=== PATIENT | male | born 1995 | race Caucasian/White ===

== ENCOUNTER 2023-06-27 10:18 | Emergency (ER) | payer SELFPAY ==
[2023-06-27 10:30] VITALS: BP 108/67; PULSE 64; RESP 15; O2SAT 98; BMI 24.4
--- NOTE | 2023-06-27 10:40 | ED_ITS ---
HPI - Wound/Laceration General: Chief Complaint: Wound/Laceration Stated Complaint: left finger lac Time Seen by Provider: 06/27/23 10:37 Source: patient Mode of arrival: ambulatory Limitations: no limitations History of Present Illness: Patient is a 28-year-old male presents to ED today for evaluation of a laceration to his left index finger that he sustained while at work just prior to arrival. 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 Tetanus is up-to-date. Onset (ago): hour(s) Extremity Location: Left: wrist (index finger) Place: work Patient tetanus UTD: Yes Context: accidental Associated symptoms: Reports no associated symptoms Review of Systems Musc: Reports: extremity pain (L finger) Skin/Breast: Reports: other (laceration L finger) Neuro: Denies: numbness in extremities or sensory changes Physical Exam Const: COMMON NORMALS: no acute distress, average body habitus, patient oriented x3, no limitations, healthy appearing, alert and well nourished Extremity: COMMON NORMALS: full ROM and capillary refill normal GENERAL: Yes normal exam except as noted LEFT UPPER EXTREMITY: Yes hand & digits (pt has extremely small 0.5 cm laceration to near dorsal PIP index) Left hand and digits: Yes ROM (full ROM against resistance in all plains ), Yes neurovascular exam (normal) and Yes other (denies bony tenderness) Neuro: COMMON NORMALS: patient oriented x3, moves all extremities, no focal motor deficits and no sensory deficits noted SENSORIUM/ORIENTATION: Yes alert Course Vital Signs: Vital signs: Vital Signs Pulse Rate 64 06/27/23 10:30 Respiratory Rate 15 06/27/23 10:30 Blood Pressure 108/67 06/27/23 10:30 Pulse Oximetry 98 06/27/23 10:30 Oxygen Delivery Me thod Room Air 06/27/23 10:30 MDM - Wound/Laceration Medical Decision Making Wound was copiously irrigated and repaired with glue as it is very superficial depth and length. Wound care/infection precautions discussed. 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 at this time and will pay [id number]. Discharge Plan Discharge Patient Disposition: Home Clinical Impression: Laceration of left index finger Qualifiers: Encounter type: initial encounter Damage to nail status: without damage Foreign body presence: without foreign body Qualified Code(s): S61.211A - Laceration without foreign body of left index finger without damage to nail, initial encounter Condition: Stable Discharge Orders: Discharge ED (Routine); Ordered 06/27/23 Ordered By: Herminia Davis Patient Instructions: Finger Laceration (ED) Activity Restrictions/Additional Instructions: Keep wound/laceration clean with warm soap and water twice daily. Monitor for signs of infection such as redness, swelling, increased pain, or drainage. Please seek medical re-evaluation if these occur. If your wound was closed with Steri-Strips or glue/adhesive these will fall off within the next week or so. Coding Level of Care Code ED Pulper Operator for Saumya Odell
== END 2023-06-27 11:20 | disposition home or self-care (01) ==
PROVIDERS: Emergency Provider Physician Assistant
DX: S61.211A Laceration without foreign body of left index finger without damage to nail, initial encounter (principal); W26.0XXA Contact with knife, initial encounter; Y99.0 Civilian activity done for income or pay
CPT/HCPCS: 12001; 99282

== ENCOUNTER 2023-07-17 16:49 | Emergency (ER) | payer SELFPAY ==
[2023-07-17 17:04] VITALS: BP 150/95; PULSE 71; RESP 16; TEMP 36.9; O2SAT 99; BMI 24.4
--- NOTE | 2023-07-17 17:11 | XRR_ITS ---
PROCEDURE INFORMATION: Exam: XR Right Ribs with PA Chest Exam date and time: 07/17/2023 5:35 PM Age: 28 years old Clinical indication: Injury or trauma; Other: Football injury; Rib area; Blunt trauma (contusions or hematomas) TECHNIQUE: Imaging protocol: Radiologic exam of the right ribs with PA chest. Views: 3 views COMPARISON: No relevant prior studies available. FINDINGS: Lungs: Unremarkable. No consolidation. Pleural spaces: Unremarkable. No pleural effusion. No pneumothorax. Heart/Mediastinum: Unremarkable. No cardiomegaly. Bones/joints: No fracture is seen about the right ribs, and particularly no displaced rib fracture is seen. Visualized osseous structures show no acute abnormality. XR/XR ribs RT mn 3V w [id number] IMPRESSION: No acute findings.
--- NOTE | 2023-07-17 17:18 | ED_ITS ---
HPI - General Adult General: Chief complaint: General Medical Stated complaint: abd pain Time Seen by Provider: 07/17/23 17:18 History of Present Illness: 28-year-old male patient was playing some football on Sunday and landed hard on his left side feeling a popping sensation in his right sternal area. Since then patient has had increased pain and discomfort to his right anterior ribs. Patient appears nontoxic. Patient appears in mild to moderate pain. Associated symptoms: Reports dyspnea (Difficulty taking a deep inspiration due to pain) Review of Systems General: Reports: 10 or more systems reviewed and unremarkable except in HPI and below Resp: Reports: dyspnea (Difficulty taking a deep inspiration due to pain) Musc: Reports: other (Chest wall tenderness pain) Physical Exam Const: COMMON NORMALS: alert HENMT: COMMON NORMALS: atraumatic HEAD & SCALP: atraumatic Neck/C-Spine: COMMON NORMALS: full ROM Chest: CHEST: Yes tenderness (Tenderness along the fifth and 6 sternal costal margins) Resp: COMMON NORMALS: normal respiratory effort and clear to auscultation bilaterally AUSCULTATION: clear to auscultation bilaterally Cardio: COMMON NORMALS: regular rate and regular rhythm RATE: regular rate RHYTHM: regular rhythm GI: COMMON NORMALS: non-tender Extremity: COMMON NORMALS: normal to inspection Neuro: SENSORIUM/ORIENTATION: Yes alert Skin: COMMON NORMALS: turgor normal GENERAL SKIN EXAM: turgor normal Course Vital Signs: Vital signs: Vital Signs Temperature 98.4 F 07/17/23 17:04 Pulse Rate 71 07/17/23 17:04 Respiratory Rate 16 07/17/23 17:04 Blood Pressure 150/95 07/17/23 17:04 Pulse Oximetry 99 07/17/23 17:04 Oxygen Delivery Me thod Room Air 07/17/23 17:04 [facility] - General Adult Medical Decision Making 28-year-old male patient comes in today with complaints of sternal rib pain. Patient reports falling while playing football on Sunday and since then has had increased pain and discomfort. On exam patient appears in mild to moderate pain. Patient has exacerbation of the pain with deep breath and cough. Lungs are clear to auscultation. Vital signs are normal except for some mild elevati on of blood pressure. Differential diagnosis includes costochondritis, sternal costal sprains, rib fracture, pneumothorax. X-ray noted no fracture or pneumothorax. No signs of severe illness or injury was noted. Reviewed exam with patient with recommendations for treatment and follow-up. Patient reported understanding and agreed to plan. XR interpretation done by ED provider, pending radiology final review Discharge Plan Discharge Patient Disposition: Home Clinical Impression: Sternocostal pain Condition: Stable Prescriptions: New ibuprofen 800 mg tablet 800 mg PO Q6H PRN (Reason: pain) Qty: 40 0RF Discharge Orders: Discharge ED (Routine); Ordered 07/17/23 Ordered By: Lucho Alejandro Discharge Diet: Usual diet Patient Instructions: Costochondritis (ED) Activity Restrictions/Additional Instructions: Use acetaminophen and ibuprofen to help with pain. Take ibuprofen at least 3 times a day to help with pain and inflammation. Use acetaminophen 1000 mg every 6 hours as needed for further pain relief. Use ice or heat for further pain control. Drink plenty of water. Follow-up with primary care for further instructions. Return to ED for new concerns. Coding Level of Care Code ED Heat Treater Helper for Saumya Odell
[2023-07-17] MEDS: ibuprofen 800 mg tablet PO (18:36)
== END 2023-07-17 18:43 | disposition home or self-care (01) ==
PROVIDERS: Emergency Provider Nurse Practitioner Family
DX: R07.81 Pleurodynia (principal)
CPT/HCPCS: 71101; 99283